=== PATIENT | male | born 1975 | race Caucasian/White ===

== ENCOUNTER 2016-10-07 19:42 | Emergency (ER) | payer OTHER ==
[~2016-10-07] VITALS: Ht 185.4 cm; Wt 113.2 kg
[~2016-10-07 19:42] MED LIST: DICL50TA3 PO
[2016-10-07 19:45] VITALS: TEMP 36.6; Ht 185.4 cm; Wt 113.2 kg
[2016-10-07] MEDS ORDERED: PROPARACAINE HCL 0.5% OP SOLN 15 ML BTL ONE (20:12)
[2016-10-07] MEDS ORDERED: TRAM-10 PO (20:16)
[2016-10-07] MEDS ORDERED: GABA-113 PO (20:16)
[2016-10-07] MEDS ORDERED: PROPARACAINE HCL 0.5% OP SOLN 15 ML BTL OP STA (20:17)
--- NOTE | 2016-10-07 20:25 | EMERGENCY ROOM VISIT NOTE ---
ED Visit Note First contact with patient: 19:58 CHIEF COMPLAINT: Eye pain HISTORY OF PRESENT ILLNESS: This 41-year-old male patient presents to the emergency department ambulatory complaining of pain in the left eye that started sometime today. The patient states it feels like there is a hair in his eye. The vision has not been decreased over all. The patient does not wear contacts. The patient rates the pain as irritation and 0/10. The patient has not tried anything. The patient has not had previous injuries to this eye. REVIEW OF SYSTEMS: A 6 system review of systems was completed with positives and pertinent negatives listed in the HPI. ALLERGIES: No known allergies MEDICATIONS: See nursing notes PMH: Chronic back pain SOCIAL HISTORY: The patient does not smoke. He lives with family PHYSICAL EXAM: Vital Signs: Reviewed Nurse's notes, vital signs stable. GENERAL: This is a 41-year-old male, in no acute distress, but who is uncomfortable from the eye problem. Well-developed well-nourished. EYES: The pupils are equal round and reactive to light and accommodation. EOMs are full and without tenderness. There is discharge of clear tears from the left eye which is injected. There is no foreign body visible under the eyelid even after lid eversion. Funduscopic exam reveals no hemorrhages, papilledema, or other abnormalities. No foreign body was seen embedded in the cornea under slit lamp exam. The cornea was clear and no hyphema was seen. Fluorescein uptake was observed with ultraviolet light and reveals a possible very superficial abrasion. There are also a few small specks that moved when the patient blinked that could represent tiny foreign bodies. EMERGENCY DEPARTMENT COURSE: I examined the patient. Alcaine 2 drops were placed in the patient's left eye. A slit lamp exam was performed as above. The eye was irrigated. He'll be placed on erythromycin ointment. The patient was discharged home in good condition. DIAGNOSIS: Corneal abrasion of the left eye DISCHARGE INSTRUCTIONS AND TREATMENT: Use the erythromycin ointment 1 cm ribbon to the lower eyelid every 8 hours for 5 days. Use Ibuprofen 600 mg every 6 hrs as needed for moderate pain. Return to the ED or see your eye doctor in 24-48 hours for a recheck. Return to the ED for increasing pain or changes in vision. Problem List Medical Problems: (1) No Known Active Medical Problems Status: Chronic Current/Historical Medications Scheduled Diclofenac (Voltaren), 75 MG PO BID Gabapentin (Neurontin), 300 MG PO DAILY Scheduled PRN Tramadol (Ultram), 50 MG PO Q6 PRN for Pain Allergies Coded Allergies: No Known Allergies (Unverified , 10/14/14) Vital Signs Date Time Temp Pulse Resp B/P (MAP) Pulse Ox O2 Delivery O2 Flow Rate FiO2 10/07/16 20:49 78 20 136/74 98 10/07/16 19:45 36.6 52 16 161/100 99 Room Air Medications Administered Medications (Trade) Dose Ordered Sig/Sarah Route Start Time Stop Time Status Last Admin Dose Admin Proparacaine HCl (Alcaine 0.5% Oph Soln) 2 drops NOW STAT OP 10/07/16 20:17 10/07/16 20:18 DC 10/07/16 20:17 2 DROPS Erythromycin (Erythromycin Oph Oint) 1 appln NOW ONCE OP 10/07/16 20:30 10/07/16 20:31 DC 10/07/16 20:27 1 APPLN Departure Information Impression Primary Impression: Corneal abrasion Dispostion Home / Self-Care Condition GOOD Referrals Guicho Díaz M.D. (PCP) Patient Instructions ED Eye Injury Corneal Abrasion, My [facility] Additional Instructions Use the erythromycin ointment 1 cm ribbon to the lower eyelid every 8 hours for 5 days. Use Ibuprofen 600 mg every 6 hrs as needed for moderate pain. Return to the ED or see your eye doctor in 24-48 hours for a recheck. Return to the ED for increasing pain or changes in vision. Problem Qualifiers Primary Impression: Corneal abrasion Encounter type: initial encounter Laterality: left Qualified Codes: S05.02XA - Injury of conjunctiva and corneal abrasion without foreign body, left eye, initial encounter
[2016-10-07] MEDS ORDERED: ERYTHROMYCIN OP OINT 5 MG/GM 3.5 GM TUBE OP ONE (20:30)
[2016-10-07 20:49] VITALS: BP 136/74; PULSE 78; O2SAT 98
== END 2016-10-07 20:50 | disposition home or self-care (01) ==
LOC: C.EDB 19:43 → C.EDD 20:50
DX: S05.02XA Injury of conjunctiva and corneal abrasion without foreign body, left eye, initial encounter (principal); X58.XXXA Exposure to other specified factors, initial encounter

== ENCOUNTER 2016-10-17 01:26 | Emergency (ER) | payer OTHER ==
[~2016-10-17] VITALS: Ht 185.4 cm; Wt 115.4 kg
[~2016-10-17 01:26] MED LIST changes: +GABA-113 PO; +TRAM-10 PO
[2016-10-17 01:30] VITALS: TEMP 36.7; Ht 185.4 cm; Wt 115.4 kg
[2016-10-17] MEDS ORDERED: PROPARACAINE HCL 0.5% OP SOLN 15 ML BTL ONE (01:40)
[2016-10-17] MEDS ORDERED: CIPROFLOXACIN HCL 0.3% OP SOLN 2.5 ML BTL OP STA (01:43)
--- NOTE | 2016-10-17 01:46 | EMERGENCY ROOM VISIT NOTE ---
ED Visit Note First contact with patient: 01:35 CHIEF COMPLAINT: Red, irritated eye HISTORY OF PRESENT ILLNESS: This 41-year-old presents to the emergency department complaining of redness in the left eye which has gradually increased today who states he was seen here last week for a corneal abrasion and that has healed on over. Mild constant pain, irritating in nature, which is rated as 2/10. There is yellow-green discharge from the left eye and the lids are crusted in the morning. No difficulty with vision. The patient does not wear contacts. There is no known trauma to the eye. The patient has not had any other upper respiratory symptoms. The right eye is normal. The patient does not have a foreign body sensation. No headache, rash, nausea or vomiting. REVIEW OF SYSTEMS: A 6 system review of systems was completed with positives and pertinent negatives in the HPI. ALLERGIES: None MEDICATIONS: Ultram, gabapentin PMH: Osteoarthritis SOCIAL HISTORY: No drug use PHYSICAL EXAM: Vital Signs: Reviewed Nurse's notes, Temperature afebrile. GENERAL: Pleasant male, in no acute distress, well-developed, well-nurished. SKIN: Warm, dry. No cyanosis. No petechia. EYES: Both pupils are equal round and reactive to light and accomadation, EOMs intact. There is yellow discharge in the left eye and moderate injection. There is no foreign body of the eyelid with lid eversion. Fundoscopic exam reveals no hemorrages, papiledema, or other abnormalities. No foreign body on the cornea, no hyphema. No uptake of flourescein visible with UV light. No corneal abrasion and no corneal ulcer. Visual Accuity is 20/25 right and 20/25 left without correction. EMERGENCY DEPARTMENT COURSE: I examined the patient. A slit lamp exam was performed and is as described above. Two drops of Ciloxin were put in the left eye and the patient was instructed as noted below. The patient was discharged home in good condition. Differential diagnosis includes conjunctivitis, corneal abrasion, iritis, foreign body, allergic reaction and other etiologies were considered. DIAGNOSIS: Acute conjunctivitis DISCHARGE INSTRUCTIONS: Ciloxan 2 drops into affected eye every 2 hrs x 2 days then 4 times a day for 5 days for a total of 7 days. No contacts for 7 days. Do not rub your eyes, and wash hands frequently. Cool compress for discomfort. Avoid irritants like smoke, wind, and sun. Throw out eye cosmetics. Acetaminophen(Tylenol) may be used for fever or pain. Use 1000mg every six hours as needed. Avoid using more than 3000mg in a 24 hour period. AND/OR Ibuprofen(Motrin, Advil) may be used for fever or pain. Use 600mg every six hours as needed. Take with food. Avoid using more than 2400mg in a 24 hour period. Do not use 2400mg per day for more than three consecutive days without physician direction. Prolonged inappropriate use can lead to stomach upset or ulcers. Follow up with family doctor or eye doctor if symptoms do not resolve in 3-4 days. Return sooner for any change in vision, eye pain, worsening signs or symptoms or as needed. Problem List Medical Problems: (1) No Known Active Medical Problems Status: Chronic Current/Historical Medications Scheduled Diclofenac (Voltaren), 75 MG PO BID Gabapentin (Neurontin), 300 MG PO DAILY Scheduled PRN Tramadol (Ultram), 50 MG PO Q6 PRN for Pain Allergies Coded Allergies: No Known Allergies (Unverified , 10/14/14) Vital Signs Date Time Temp Pulse Resp B/P (MAP) Pulse Ox O2 Delivery O2 Flow Rate FiO2 10/17/16 01:30 36.7 114 18 139/91 93 Room Air Departure Information Referrals No Doctor, Assigned (PCP) Patient Instructions [facility]
[2016-10-17 02:01] VITALS: BP 126/86; PULSE 70; O2SAT 96
== END 2016-10-17 02:02 | disposition home or self-care (01) ==
LOC: C.EDB 01:27
DX: H10.32 Unspecified acute conjunctivitis, left eye (principal); M19.90 Unspecified osteoarthritis, unspecified site

== ENCOUNTER → 2016-12-19 | Outpatient (CLI) | payer OTHER ==
[2016-12-19 12:17] LABS: BASO % 0.4 %; BASO ABS # 0.03 K/uL (0-0.2); COMPLETE YES; EOS % 2.9 %; HEMATOCRIT 43.3 % (42-52); IG% 0.2 %; LYMPH % 23.4 %; LYMPH ABS # 1.93 K/uL (1.2-3.4); MEAN CELL VOLUME 84.1 fL (80-100); MEAN CORPUSCULAR HEMOGLOBIN 28.3 pg (25-34); MEAN CORPUSCULAR HGB CONC 33.7 g/dl (32-36); MONO % 7.3 %; NEUT % 65.8 %; PLATELET COUNT 288 K/uL (130-400); RED BLOOD COUNT 5.15 M/uL (4.7-6.1); WHITE BLOOD COUNT 8.26 K/uL (4.8-10.8)
[2016-12-19 12:39] LABS: ALT/SGPT 50 U/L (12-78); AST/SGOT 19 U/L (15-37); BLOOD UREA NITROGEN 20 mg/dl (7-18); BUN/CREATININE RATIO 19.9 (10-20); CALCIUM 8.7 mg/dl (8.5-10.1); CARBON DIOXIDE 26 mmol/L (21-32); CHLORIDE 105 mmol/L (98-107); CHOLESTEROL 211 mg/dl (0-200); CREATININE 1.01 mg/dl (0.60-1.40); GLUCOSE 92 mg/dl (70-99); POTASSIUM 3.9 mmol/L (3.5-5.1); SODIUM 139 mmol/L (136-145); TRIGLYCERIDES 154 mg/dl (0-150); VERY LOW DENSITY LIPOPROT CALC 31 mg/dl
[2016-12-19 12:49] LABS: ALKALINE PHOSPHATASE 72 U/L (45-117); CHOLESTEROL/HDL RATIO 6.4; HDL CHOLESTEROL 33 mg/dl; LDL CHOLESTEROL CALCULATED 147 mg/dl
== END | disposition home or self-care (01) ==
LOC: C.LABBFT 07:40
PROVIDERS: ATTEND Physician Assistant Medical
DX: R20.0 Anesthesia of skin (principal)

== ENCOUNTER → 2017-01-09 | Outpatient (CLI) | payer OTHER ==
[2017-01-09 13:17] LABS: LYME DISEASE AB IGG NEG (NEG); LYME DISEASE AB IGM NEG (NEG)
[2017-01-15 11:29] LABS: VITAMIN B2** TC 36399 8.6 nmol/L (6.2-39.0); VITAMIN B6** TC 926 21.2 ng/mL (2.1-21.7)
== END | disposition home or self-care (01) ==
LOC: C.LABBFT 09:36
PROVIDERS: ATTEND Physician Assistant Medical
DX: R20.0 Anesthesia of skin (principal)

== ENCOUNTER → 2017-04-03 | Outpatient (CLI) | payer OTHER ==
[2017-04-06 00:33] LABS: ANA SCREEN TC 249X NEGATIVE (NEGATIVE); ANTI-SS-A <1.0 NEG AI (<1.0 NEG); ANTI-SS-B <1.0 NEG AI (<1.0 NEG)
== END | disposition home or self-care (01) ==
LOC: C.LAB 10:40
PROVIDERS: ATTEND Psychiatry & Neurology Neurology
DX: G62.9 Polyneuropathy, unspecified (principal); R20.0 Anesthesia of skin